=== PATIENT | female | born 1990 | race African-American/Black ===

== ENCOUNTER 2018-02-23 21:09 | Inpatient (IN) | payer SELFPAY ==
[2018-02-23] MEDS ORDERED: IBUPROFEN 600 MG TAB PO (22:00)
[2018-02-23] MEDS ORDERED: BUTORPHANOL 2 MG INJ IV (22:00)
[2018-02-23] MEDS ORDERED: CARBOPROST 250 MCG INJ IM (22:00)
[2018-02-23] MEDS ORDERED: MISOPROSTOL 200 MCG TAB PR (22:00)
[2018-02-23] MEDS ORDERED: METHYLERGONOVINE 0.2 MG INJ IM (22:00)
[2018-02-23] MEDS ORDERED: OXYTOCIN 30 UNITS/LR 500 ML IV (22:00)
[2018-02-23] MEDS ORDERED: LIDOCAINE 1% (MPF) 30 ML INJ INJ (22:00)
[2018-02-23 23:19] LABS: ADD MAN DIFF? NO
[2018-02-23] MEDS: LACTATED RINGER'S 1,000 ML IV ×2 (23:25→23:33)
[2018-02-23 23:28] LABS: BASOPHILS % 0.1 % (0.0-2.0); EOSINOPHILS # 0.1 10^3/ul (0.0-0.5); EOSINOPHILS % 0.8 % (0.0-7.0); HEMATOCRIT 37.1 % (37.0-47.0); HEMOGLOBIN 12.5 g/dl (12.0-16.0); LYMPHOCYTES # 1.4 10^3/ul (0.8-2.9); LYMPHOCYTES % 15.9 % (15.0-51.0); MEAN CORPUSCULAR HEMOGLOBIN 29.6 pg (29.0-33.0); MEAN CORPUSCULAR HGB CONC 33.7 g/dl (32.0-37.0); MEAN CORPUSCULAR VOLUME 87.7 fl (82.0-101.0); MONOCYTE # 0.7 10^3/ul (0.3-0.9); MONOCYTES % 7.6 % (0.0-11.0); NEUTROPHIL # 6.6 10^3/ul (1.6-7.5); NEUTROPHILS % 74.9 % (39.0-77.0); PLATELET COUNT 124 10^3/UL (140-415); RED BLOOD COUNT 4.23 10^6/ul (4.20-5.40); RED CELL DISTRIBUTION WIDTH 13.1 % (11.5-14.5)
[2018-02-23 23:28] LABS: WHITE BLOOD COUNT 8.8 10^3/ul (4.8-10.8)
[2018-02-23 23:34] LABS: ADD UMIC NO; UR ASCORBIC ACID NEGATIVE (NEGATIVE); UR BILIRUBIN (Dip) NEGATIVE (NEGATIVE); UR BLOOD (Dip) NEGATIVE (NEGATIVE); UR CLARITY CLEAR (CLEAR); UR COLOR YELLOW (YELLOW); UR GLUCOSE (Dip) NEGATIVE (NEGATIVE); UR KETONES (Dip) NEGATIVE (NEGATIVE); UR LEUKOCYTE ESTERASE (Dip) NEGATIVE Leu/ul (NEGATIVE); UR NITRITE (Dip) NEGATIVE (NEGATIVE); UR SPECIFIC GRAVITY (Dip) 1.014 (1.003-1.030); UR TOTAL PROTEIN (Dip) NEGATIVE (NEGATIVE); UR UROBILINOGEN (Dip) NEGATIVE (NEGATIVE)
[2018-02-23] MEDS: AMPICILLIN 2 GM/NS (PMX) 100 ML IVPB (23:48)
[2018-02-23 23:51] LABS: INR 0.95; PROTIME 12.8 Sec (11.9-14.9)
[2018-02-23 23:52] LABS: PARTIAL THROMBOPLASTIN TIME 24.2 Sec (25.0-35.0)
[2018-02-23] MEDS ORDERED: FENTAnyl 2MCG/ML-ROPIV 0.2% 100 ML (23:56)
[2018-02-24] MEDS ORDERED: EPHEDrine SULFATE 50 MG/5 ML SYG IV
[2018-02-24] MEDS ORDERED: DIPHENHYDRAMINE 50 MG INJ IV
[2018-02-24] MEDS ORDERED: NALOXONE (0.4 MG/ML) INJ IV
[2018-02-24 00:33] LABS: HEPATITIS B SURFACE ANTIBODY POSITIVE (NEGATIVE)
[2018-02-24] MEDS ORDERED: AMPICILLIN 1 GM/NS (PMX) 50 ML IVPB (01:00)
[2018-02-24 03:14] LABS: HEPATITIS B SURFACE ANTIGEN NEGATIVE (NEGATIVE)
[2018-02-24 03:30] LABS: AMPHETAMINE/METHAMPHETAMINE NEGATIVE (NEGATIVE); BARBITURATES NEGATIVE (NEGATIVE); CANNABINOIDS NEGATIVE (NEGATIVE); COCAINE NEGATIVE (NEGATIVE); OPIATES NEGATIVE (NEGATIVE)
[2018-02-24 03:50] LABS: BENZODIAZEPINES NEGATIVE (NEGATIVE)
[2018-02-24] MEDS: AMPICILLIN 1 GM/NS (PMX) 50 ML IVPB ×3 (04:16→12:00)
[2018-02-24] MEDS ORDERED: OXYTOCIN 30 UNITS/LR 500 ML IV ×2 (05:00→14:30)
[2018-02-24] MEDS: LACTATED RINGER'S 1,000 ML IV (08:39)
[2018-02-24] MEDS: FENTAnyl 2MCG/ML-ROPIV 0.2% 100 ML BAG EPI (09:52)
[2018-02-24] MEDS: OXYTOCIN 30 UNITS/LR 500 ML IV ×4 (12:59→21:06)
[2018-02-24] MEDS ORDERED: ACETAMINOPHEN 325 MG TAB PO (14:30)
[2018-02-24] MEDS ORDERED: HYDROCODONE/APAP (5/325) TAB PO (14:30)
[2018-02-24] MEDS ORDERED: MISOPROSTOL 200 MCG TAB PR (14:30)
[2018-02-24] MEDS ORDERED: NACL 0.9% 3 ML SYG IV (14:30)
[2018-02-24] MEDS ORDERED: ZOLPIDEM 5 MG TAB PO (14:30)
[2018-02-24] MEDS ORDERED: CARBOPROST 250 MCG INJ IM (14:30)
[2018-02-24] MEDS ORDERED: DIPHENHYDRAMINE 25 MG CAP PO (14:30)
[2018-02-24] MEDS ORDERED: ONDANSETRON 4 MG INJ IV ×2 (14:30)
[2018-02-24] MEDS ORDERED: METHYLERGONOVINE 0.2 MG INJ IM (14:30)
[2018-02-24 15:31] LABS: RAPID PLASMA REAGIN NONREACTIVE (NR)
[2018-02-24] MEDS: WITCH HAZEL/GLYCERIN PAD PR (15:58)
[2018-02-24] MEDS: BENZOCAINE 20% 56 ML SPRAY TOP (15:58)
[2018-02-24] MEDS: LANOLIN 7 GM TUBE TOP (15:59)
[2018-02-24] MEDS ORDERED: BENZOCAINE 20% 56 ML SPRAY TOP (16:00)
[2018-02-24] MEDS: IBUPROFEN 600 MG TAB PO ×2 (18:13→23:35)
[2018-02-24] MEDS: SENNA/DOCUSATE NA (8.6MG/50MG) TAB PO (21:23)
[2018-02-25 04:07] LABS: RHOGAM PROFILE 1 1
[2018-02-25] MEDS: IBUPROFEN 600 MG TAB PO ×3 (05:52→18:41)
[2018-02-25 07:14] LABS: HEMATOCRIT 34.4 % (37.0-47.0); HEMOGLOBIN 11.5 g/dl (12.0-16.0)
[2018-02-25] MEDS: SENNA/DOCUSATE NA (8.6MG/50MG) TAB PO (08:47)
[2018-02-25] MEDS: FOLIC ACID 0.4 MG TAB PO (08:47)
== END 2018-02-25 19:45 | disposition home or self-care (01) | DRG 775 ==
LOC: OBT 21:09 → L-D 21:10 → PP1 02-24 14:00 → OBT 21:58 → L-D 21:58
PROC: 10D07Z6 Extraction of Products of Conception, Vacuum, Via Natural or Artificial Opening (ICD-10-PCS; principal; 2018-02-24)
PROC: 0KQM0ZZ Repair Perineum Muscle, Open Approach (ICD-10-PCS; 2018-02-24)
PROC: 0UQMXZZ Repair Vulva, External Approach (ICD-10-PCS; 2018-02-24)
DX: O62.3 Precipitate labor (principal); O76 Abnormality in fetal heart rate and rhythm complicating labor and delivery; O70.1 Second degree perineal laceration during delivery; O71.82 Other specified trauma to perineum and vulva; Z3A.39 39 weeks gestation of pregnancy; Z37.0 Single live birth
CPT/HCPCS: 36415; 62319; 76815; 80307; 81003; 85014; 85018; 85025; 85610; 85730; 86592; 86706; 86850; 86885; 86900; 86901; 87340; 99464